=== PATIENT | male | born 1995 | race African-American/Black ===

== ENCOUNTER 2016-05-24 21:36 | Emergency (ER) | payer SELFPAY ==
[2016-05-24 22:24] VITALS: BP 137/78; PULSE 72; RESP 18; TEMP 98.2
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
== END 2016-05-24 22:59 | disposition home or self-care (01) ==
LOC: EC 21:36
DX: S39.012A Strain of muscle, fascia and tendon of lower back, initial encounter (principal); V48.5XXA Car driver injured in noncollision transport accident in traffic accident, initial encounter
CPT/HCPCS: 99283